=== PATIENT | male | born 1965 | race Caucasian/White ===

== ENCOUNTER 2020-02-19 05:23 | Day surgery (SDC) | payer OTHER ==
[2020-02-19 06:18] LABS: BASOPHILS 0.2 % (0-2); EOSINOPHILS 8.6 % (0-7); HEMATOCRIT 42.1 % (42.0-54.0); HEMOGLOBIN 14.7 g/dL (13.5-17.5); IMMATURE GRANULOCYTES 0.2 % (0-5); LYMPHOCYTES 34.9 % (15-50); MCH 36.9 pg (26.0-34.0); MCHC 34.9 g/dL (31.0-37.0); MCV 105.8 fL (80.0-100.0); MEAN PLATELET VOLUME 10.9 fL (7.4-10.4); MONOCYTES 8.2 % (2-11); NEUTROPHILS 47.9 % (40-80); PLATELET COUNT 73 10x3/uL (130-400); RBC 3.98 10x6/uL (4.20-6.10); RDW 12.8 % (11.5-14.5); WBC 4.8 10x3/uL (4.8-10.8)
[2020-02-19 06:24] LABS: APTT 36.3 SECONDS (22.8-39.4); INR 1.34 (0.85-1.17); PROTIME 16.5 SECONDS (11.6-15.0)
[2020-02-19 06:30] LABS: CALC OSMOLALITY 274 mosm/kg (275-300); CALCIUM 8.4 mg/dL (8.5-10.1); CARBON DIOXIDE 24.6 mmol/L (21.0-32.0); CHLORIDE - SERUM 104 mmol/L (98-107); CREATININE - SERUM 0.8 mg/dL (0.6-1.3); GLUCOSE 137 mg/dL (74-106); POTASSIUM - SERUM 3.7 mmol/L (3.5-5.1); SODIUM 136 mmol/L (136-145); UREA NITROGEN 14 mg/dL (7-18); eGFR NON AFRICAN AMERICAN > 90 mL/min (90-120)
[2020-02-19] MEDS ORDERED: NOVOLIN 70/30 110 ML (07:55)
[2020-02-19] MEDS ORDERED: HUMULIN 70100 UNIT/1 SC (07:56)
[2020-02-19] MEDS ORDERED: NOVOLIN 70/30 110 ML SC (07:57)
[2020-02-19] MEDS ORDERED: PRINIVIL20 MG (07:58)
[2020-02-19 08:16] VITALS: BP 136/66; Wt 107.0 kg
[2020-02-19 13:33] LABS: PLATELET ESTIMATE DECREASED
--- NOTE | 2020-02-19 14:32 | NUR ---
1340-TOLERATED TRAY. VSS. NO N/V. REMOVED IV WITH CATH INTACT,DISPOSED INTO SHAPRS,COVERED SITE WITH GUAZE,SECURED WITH MEDIPORE TAPE.
--- NOTE | 2020-02-19 14:35 | NUR ---
1350-REVIEWED POST OPERATIVE INSTRUCTIONS WITH IM. CORRECTIONAL OFFICERS TO GIVE PAPERWORK TO THEIR MEDICAL DEPT IN [place]. ESCORTED OUT VIA W/C, STABLE CONDITION WITHOUT COMPLAINTS
--- NOTE | 2020-02-23 12:53 | OP ---
PATIENT NAME: PERFECTO GARCIA MEDICAL RECORD: [id number] :63 LOCATION:[facility] ADMISSION DATE: SURGEON: JUAN RAMON VIVAR MD DATE OF OPERATION: 02/19/2020 PREOPERATIVE DIAGNOSIS: 1. Gallbladder polyp. 2. Cirrhosis. POSTOPERATIVE DIAGNOSES: 1. Gallbladder polyp. 2. Cirrhosis. 3. Gallstones. PROCEDURES: 1. Laparoscopic cholecystectomy. 2. Intraoperative cholangiography without immediate surgeon interpretation. 3. 14-gauge core liver biopsies. COMPLICATIONS: The risks, possible complications, alternatives to the procedure were explained to the patient. He elects to proceed. The discussion specifically included, but was not limited to, bleeding requiring emergency reoperation, infection, intestinal injury. OPERATIVE COURSE: The patient was conveyed to the operating room electively on 02/19/2020. General anesthesia was induced by the anesthesia staff. The abdomen was sterilely prepped and draped. An incision was accomplished within the umbilicus. There was a small umbilical hernia present. I dissected down to the hernia defect. Stay sutures of 0 Vicryl were placed on either side of the hernia defect. The peritoneal cavity was entered bluntly. CO2 insufflation was begun. Once a sufficient pneumoperitoneum had been achieved, 3 more trocars were inserted. There was an epigastric 5-mm trocar, a right upper quadrant 5-mm trocar, and then another trocar inserted far laterally in the right upper quadrant. During insertion of the trocars, there was no apparent injury to the bowels, any intraperitoneal or retroperitoneal structures. An abdominal survey was undertaken. I noted no ascites. Established cirrhosis was present. The indication for the liver biopsy was cirrhosis. Under laparoscopic guidance, I percutaneously accessed the right upper quadrant utilizing a 14-gauge core biopsy device. Cores were obtained over the convexity of the liver. The biopsy sites were made hemostatic with electrocautery. I then advanced a cholangiogram trocar. I punctured the fundus of the gallbladder. I aspirated bile. I then injected dye. Under real time fluoroscopy, cholangiographic images were obtained and these were sent to the radiologist for interpretation. I then aspirated bile and removed the cholangiogram trocar. The gallbladder was grasped and retracted cephalad. The infundibulum was grasped and retracted laterally. Blunt dissection was begun in the triangle of Calot. One cystic duct and 2 cystic arteries were identified. These were clipped multiply and divided between clips. OPERATIVE REPORT [id number] JOSEPERFECTO The gallbladder was then dissected free from the liver, placed within a bag retrieval device and was withdrawn through the umbilical fascia defect. The 12-mm trocar was replaced and the abdomen reinsufflated. There was no bleeding even at low pressure of 8. Noni was added to the gallbladder fossa for additional hemostasis. All the trocars were removed and the abdomen desufflated. The umbilical fascial defect was closed with a horizontal mattress 0 Vicryl suture. The umbilical skin was approximated with interrupted 4-0 Vicryl Rapide sutures. The other trocar sites were closed with interrupted intracuticular 3-0 Vicryls. Sterile dressings were applied. The patient was then extubated and conveyed to post-anesthesia care unit where he was in stable condition. He will be dismissed back to the residential later on a narcotic analgesic. There is no need for the patient to follow up with me in the office unless he develops a complication related to this operative procedure. TRANSINT:[id number] Voice Confirmation ID: [id number] DOCUMENT ID: [id number] CC: [facility] JUAN RAMON VIVAR MD at 1253 CC: NICK VERAS DR. [id number] DICTATION DATE: 02/22/20 1428 FIELD AIDE: 02/22/20 2319 [facility] 02/19/20 [id number] [place] [address]
== END 2020-02-19 13:50 | disposition home or self-care (01) ==
LOC: D.OPS 05:23
PROVIDERS: Anesthesiology; ATTEND Surgery
DX: K82.4 Cholesterolosis of gallbladder (principal); K74.60 Unspecified cirrhosis of liver; E11.9 Type 2 diabetes mellitus without complications